=== PATIENT | male | born 1975 | race Caucasian/White ===

== ENCOUNTER → 2023-09-18 10:31 | Outpatient (BNVA) | payer MEDICAID, SELFPAY | PROVIDERS: PCP Nurse Practitioner Family; Visit Provider Specialist | DX: M25.521 Pain in right elbow (principal); R22.31 Localized swelling, mass and lump, right upper limb | CPT/HCPCS: 73080 ==

== ENCOUNTER 2023-10-10 05:54 | Day surgery (SDC) | payer MEDICAID, SELFPAY ==
[2023-10-10] VITALS (10 sets, daily range): BP systolic 114–159; BP diastolic 63–95; PULSE 53–73; RESP 16–18; TEMP 36.2–36.7; O2SAT 94–99; BMI 28.0
[2023-10-10] MEDS: sodium chloride 0.9% 1,000 ML 30 ML IV (06:34)
--- NOTE | 2023-10-10 06:45 | ANES.PREANE2 ---
Pre-Anesthetic Assessment Height/Weight: Height 1.83 m Weight 93.894 kg Temp Pulse Resp BP Pulse Ox O2 Del Method 97.1 F L 73 18 132/73 98 Room Air 10/10/23 06:12 10/10/23 06:12 10/10/23 06:12 10/10/23 06:12 10/10/23 06:12 10/10/23 06:19 Operation Date: 10/10/23 07:10 Proposed Procedures p RIGHT ELBOW MASS REMOVAL(Right) - Jaleesa Munoz MD Familial anesthetic complications: None Was Beta Franco taken within 24 hours: N/A Was Clonidine taken within 24 hours: N/A Last intake: Intake Last Liquid Date 10/09/23 Last Liquid Time 19:30 Last Solid Date 10/09/23 Last Solid Time 19:30 Social Tobacco and No alcohol Exam alert, oriented x 3, clear to auscultation bilaterally and regular rate & rhythm Airway Mallampati: Class II Dentition: other (missing) Anesthetic Plan ASA status: 2 Anesthesia: General Risk of > 500 ml blood loss (7ml/kg in children): No Medications/Allergies Home Medications Medication Instructions Recorded Confirmed Last Taken Type ibuprofen 200 mg PO PRN PRN Pain 10/09/23 10/09/23 Unknown History prednisone 10 mg tablet 10 mg PO PRN PRN gout flare up 10/09/23 10/09/23 10/07/23 History Allergies Allergy/AdvReac Type Severity Reaction Status Date / Time aloe vera Allergy Mild hives Verified 09/18/23 10:56 allopurinol Allergy ADR-Chest Verified 10/09/23 12:05 Pain Current Medications Generic Name Dose Route Start Last Admin Trade Name Freq PRN Reason Stop Dose Admin Sodium Chloride 1,000 mls @ 30 mls/hr 10/10/23 06:00 10/10/23 06:34 Sodium Chloride 0.9% IV 10/11/23 05:59 30 mls/hr .Q24H NUNU Administration PFSH Anesthesia Social History Smoking and tobacco/nicotine status: current every day tobacco/nicotine user cigarettes Quit status (tobacco/nicotine): not considering quitting Second hand smoke exposure: Yes Alcohol intake: former Substance/Drug Use: never Adopted: No Caregiver/support person: Yes Lives independently: No Household members: spouse Housing: House Marital status: Number of children: 3 Number of grandchildren: 2 Data Anesthesia Cardiac Studies: No Data to Display
--- NOTE | 2023-10-10 06:57 | P.HPUD_ITS ---
Surgery/Procedure H&P Update DATE OF PROCEDURE: October 10, 2023 DATE H&P PERFORMED: 09/18/23 H&P UPDATE INFORMATION: I have reviewed H&P completed within last 30 days, I have examined patient prior to procedure, No changes to prior documentation and H&P is in [facility] [place] indicated PLANNED PROCEDURE: Operation Date: 10/10/23 07:10 Proposed Procedures p RIGHT ELBOW MASS REMOVAL(Right) - Jaleesa Munoz MD Related Problem List Diagnoses (1) Mass of right elbow:
[2023-10-10] MEDS: ceFAZolin 2,000 mg SDV 2000 MG IVP (07:00)
[2023-10-10] MEDS: BUPivacaine 0.5% INJ 30 mL XX (07:30)
--- NOTE | 2023-10-10 08:31 | PM.OP ---
Operative Report Date of procedure: October 10, 2023 Pre-op diagnosis: Right elbow soft tissue mass Post-op diagnosis: Right elbow soft tissue mass Post-op findings: Small, hard, soft tissue mass, very superficial Procedure done: Removal right elbow soft tissue mass Implants: None Specimens removed/disposition: Soft tissue mass sent to pathology in formalin Pathology: Soft tissue mass Surgeon: Jaleesa Munoz MD Electronics Hardware Design Engineer: None Anesthesia: General (Per LMA, ASA 2) Estimated blood loss (mL): 1 Tourniquet time (min): 27 (At 250 mmHg) IV fluids (mL): 800 Urine output (mL): 0 (No Ott) Complications: None Findings: Small very superficial soft tissue mass extensor surface of elbow Condition: stable Disposition: PACU (Then return to same-day surgery for discharge to home) Brief History: This 48-year-old gentleman presented to the office complaining of elbow pain and a small superficial mass over the extensor surface of the elbow. He noted that he was constantly hitting this area and it caused him pain. He felt it also caused limitation to his range of motion. After discussion in the office, the patient wished to proceed with removal of this. Risks and complications were discussed with him, and consents were signed. Procedure: The patient was brought to the operating theater. Patient was administered a general anesthetic per LMA, ASA 2. The patient was also given Ancef 2 g preoperatively. The arm was then prepped and draped with DuraPrep in usual fashion with the arm draped free. A surgical pause was performed. At the time, the surgical pause, we confirmed the site and side of surgery. We also confirmed the patient's identity, appropriate and timely administration of preoperative antibiotics and preoperative surgical markings. The patient soft tissue mass was evaluated. A small incision was made to the ulnar side of the mass. Tourniquet was elevated prior to incision and following exsanguination. The tourniquet was elevated to 250 mmHg for a total tourniquet time of 27 minutes. Care was taken to dissected around the soft tissue mass. It was removed and sent to pathology. The wound was then copiously irrigated. Attention was directed to closure. Deep tissues were closed with 2-0 Monocryl. The skin was closed with 4-0 Monocryl. This was followed by Dermabond and Steri-Strips. An OpSite was then placed followed by sterile soft roll and an Isaias wrap. The patient was placed in a sling and the tourniquet was released after 27 minutes. There were no complications. Specimens was sent to pathology. Procedure was well-tolerated and the patient will be discharged home after recovery room and second stage. Related Problem List Diagnoses (1) Mass of right elbow:
--- NOTE | 2023-10-10 09:10 | ANE.PACU2 ---
Inpatient post-anesthesia follow up: Airway intact: Yes Vital signs: Temperature 98 F Pulse Rate 59 Respiratory Rate 18 Blood Pressure 152/78 Pulse Oximetry 99 Oxygen Delivery Me thod Room Air Oxygen Flow Rate 6 Fraction of Inspir ed Oxygen Hydration adequate: Yes Nausea and vomiting: No Pain level: 1 Mental status: Baseline
== END 2023-10-10 09:10 | disposition home or self-care (01) ==
PROVIDERS: PCP Nurse Practitioner Family; Visit Provider Specialist
PROC: (CPT 24075; principal; 2023-10-10 07:00)
DX: L72.0 Epidermal cyst (principal); F17.210 Nicotine dependence, cigarettes, uncomplicated
CPT/HCPCS: 24075; 88304; J0690; J2250; J2704; J3010; J3490; J7030